=== PATIENT | female | born 1950 | race Two or more races ===

== ENCOUNTER 2022-11-19 06:02 | Emergency (ER) | payer OTHER ==
[~2022-11-19] VITALS: Ht 157.5 cm; Wt 108.9 kg
[~2022-11-19 06:02] MED LIST: ALENDRONATE SOD70 MG PO; ASA81 MG; BUDESONIDE0.5 MG/2 M; BUDESONIDE0.5 MG/2 M IH; CALCIUM500 M1; CALTRATE 600 +1 EACH PO; CALTRATE 600+D1 EAC1; CALTRATE 600+D1 EACH PO; CHILDREN'S ASPI81 MG PO; DICLOFENAC SODI50 MG PO; FARXIGA10 MG PO; FORTAMET1000 MG; FOSAMAX70 MG; FOSAMAX70 MG PO; GLIMEPIRIDE4 MG; HORIZANT300 MG PO; HUMULIN 70100 UNIT/1; HUMULIN 70100 UNIT/2; LASIX20 MG PO; LEVALBUTER1.25 MG/3 IH; LEVAQUIN500 MG; LEVAQUIN750 MG PO; LEVO-T175 MCG PO; METFORMIN HCL1000 M2 PO; METFORMIN HCL1000 MG; NEURONTIN300 MG; NORFLEX100MG PO; PEPCID AC10 MG; PEPCID AC20 MG; PYRIDIUM200 MG PO; QDOLO5 MG/1 ML PO; SEPTRA DS TABLE1 TAB PO; SIMVASTATIN80 MG PO; SYNTHROID100 MCG; SYNTHROID175 MCG; TESSALON PERLE100 MG PO; TUSSI PRES-B L480 ML PO; ZESTRIL10 M1 PO; ZITHROMAX500 MG PO
== END 2022-11-19 06:57 | disposition home or self-care (01) ==
LOC: ER 06:02
DX: M79.671 Pain in right foot (principal); Z88.0 Allergy status to penicillin; Z88.8 Allergy status to other drugs, medicaments and biological substances; Z88.2 Allergy status to sulfonamides

== ENCOUNTER 2022-12-20 07:20 | Emergency (ER) | payer OTHER ==
[~2022-12-20] VITALS: Ht 154.9 cm; Wt 107.0 kg
== END 2022-12-20 12:18 | disposition home or self-care (01) ==
LOC: ER 07:20
DX: B34.9 Viral infection, unspecified (principal); Z88.2 Allergy status to sulfonamides; Z88.0 Allergy status to penicillin; Z20.822 Contact with and (suspected) exposure to COVID-19; M19.90 Unspecified osteoarthritis, unspecified site; E11.9 Type 2 diabetes mellitus without complications; Z79.4 Long term (current) use of insulin; E78.00 Pure hypercholesterolemia, unspecified; E03.9 Hypothyroidism, unspecified; I10 Essential (primary) hypertension

== ENCOUNTER 2024-04-26 07:38 | Outpatient (CLI) | payer OTHER | END 2024-04-26 07:40 | disposition home or self-care (01) | LOC: NUCLEAR 07:38 | PROVIDERS: ATTEND Internal Medicine Cardiovascular Disease | DX: I20.89 Other forms of angina pectoris (principal) | CPT/HCPCS: 78452; 93017; A9500 ==